=== PATIENT | female | born 1950 | race Caucasian/White ===

== ENCOUNTER 2018-11-28 17:11 | Emergency (ER) | payer MEDICARE, OTHER ==
[~2018-11-28] VITALS: Ht 167.6 cm; Wt 65.8 kg
[~2018-11-28 17:11] MED LIST: ASPI-1152; BUTA-247; DONE5TAB34; FENO145T35; MECL-102; MEMA10TA21; SERT100T12; SIMV20TA6
--- NOTE | 2018-11-28 17:20 | NUR ---
pt ambulatory to er bed 11. c/o cough, nasal congestion x 6 days now. 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
--- NOTE | 2018-11-28 17:28 | NUR ---
dr thomason at bedside for eval.
--- NOTE | 2018-11-28 18:27 | NUR ---
Patient discharged to home in stable condition. Written and verbal after care instructions given. Patient verbalizes understanding of instruction.
[2018-11-28 18:28] VITALS: BP 138/74
== END 2018-11-28 18:29 | disposition home or self-care (01) ==
LOC: ER 17:11
DX: J22 Unspecified acute lower respiratory infection (principal); Z90.89 Acquired absence of other organs; Z90.710 Acquired absence of both cervix and uterus; Z79.82 Long term (current) use of aspirin
CPT/HCPCS: 71045-TC

== ENCOUNTER 2019-02-20 22:54 | Inpatient (IN) | payer MEDICARE, OTHER ==
[~2019-02-20] VITALS: Ht 167.6 cm; Wt 68.9 kg
--- NOTE | 2019-02-20 23:48 | NUR ---
BIBF. C/O "HAVING SHARP CHEST PAIN, 6/10 RADIATING TO BACK. +DIZZY" AOX4. AMBULATORY. -SOB NOTED. -ACUTE DISTRESS
[2019-02-20 23:52] LABS: BASOPHILS # (AUTO) 0.1 /CMM (0.0-0.2); BASOPHILS % (AUTO) 1.2 % (0.0-2.0); EOSINOPHILS % (AUTO) 5.7 % (0.0-6.0); HEMATOCRIT 38 % (33-45); HEMOGLOBIN 12.9 g/dL (11.5-14.8); LYMPHOCYTES # (AUTO) 2.3 /CMM (0.8-4.8); LYMPHOCYTES % (AUTO) 34.8 % (20.0-44.0); MEAN CORPUSCULAR HGB CONC 34 g/dl (31.0-36.0); MEAN CORPUSCULAR VOLUME 83 fL (82-100); MONOCYTES # (AUTO) 0.6 /CMM (0.1-1.30); MONOCYTES % (AUTO) 9.1 % (2.0-12.0); NEUTROPHILS # (AUTO) 3.2 /CMM (1.8-8.9); NEUTROPHILS % (AUTO) 49.2 % (43.0-81.0); PLATELET COUNT (AUTO) 250 /CMM (150-450); WHITE BLOOD COUNT (AUTO) 6.6 K/uL (4.3-11.0)
[2019-02-21] VITALS (9 sets, daily range): BP systolic 134–187; BP diastolic 68–108
[2019-02-21 00:03] LABS: CALCIUM, SERUM 9.4 mg/dL (8.5-10.1); CARBON DIOXIDE 29 mmol/L (21-32); CHLORIDE 106 mmol/L (98-107); CREATININE 0.6 mg/dL (0.6-1.3); GLUCOSE 122 mg/dL (74-106); POTASSIUM 3.7 mmol/L (3.5-5.1); SODIUM SERUM 143 mmol/L (136-145); UREA NITROGEN, BLOOD 9 mg/dL (7-18)
[2019-02-21 00:23] LABS: ALANINE AMINOTRANSFERASE 21 U/L (12-78); ALBUMIN 3.7 g/dL (3.4-5.0); ALKALINE PHOSPHATASE 81 U/L (46-116); ASPARTATE AMINOTRANSFERASE 15 U/L (15-37); B-TYPE NATRIURETIC PEPTIDE 53 PG/ML (0-125); BILIRUBIN,DIRECT 0.1 mg/dL (0.0-0.2); BILIRUBIN,TOTAL 0.2 mg/dL (0.2-1.0); TOTAL PROTEIN, SERUM 8.2 g/dL (6.4-8.2)
[2019-02-21] MEDS ORDERED: ASPIRIN 81 MG TAB.CHEW PO ONE (02:00)
[2019-02-21] MEDS ORDERED: ASPIRIN 81 MG TAB.CHEW ONE (02:01)
[2019-02-21] MEDS ORDERED: CT SWABBABLE VALVE TRANS SET 1 EA INFUS.SET MC ONE (02:19)
[2019-02-21] MEDS ORDERED: IOHEXOL-350 100 ML VIAL IV ONE (02:19)
[2019-02-21] MEDS ORDERED: IV NS 0.9% 250 ML IV ONE (02:19)
--- NOTE | 2019-02-21 04:38 | NUR ---
DR CLEARY PAGED, DIRECT TO VOICEMAIL. MESSAGE LEFT
--- NOTE | 2019-02-21 04:50 | NUR ---
DR CLEARY PAGED. NO ANSWER
--- NOTE | 2019-02-21 05:17 | NUR ---
DR CLEARY PAGED, NO ANSWER
[2019-02-21] MEDS ORDERED: HYDROCODONE/APAP 5/325MG 1 EACH TABLET PO PRN (05:30)
[2019-02-21] MEDS ORDERED: ONDANSETRON HCL/PF 4 MG/2 ML VIAL IVP PRN (05:30)
[2019-02-21] MEDS ORDERED: MAG HYDROX/AL HYDROX/SIMETH 30 ML UDC PO PRN (05:30)
[2019-02-21] MEDS ORDERED: TEMAZEPAM 15 MG CAPSULE PO PRN (05:30)
[2019-02-21] MEDS ORDERED: MAGNESIUM HYDROXIDE 30 ML UDC PO PRN (05:30)
[2019-02-21] MEDS ORDERED: MORPHINE SULFATE INJ 2 MG/ML DISP.SYRIN IV PRN (05:30)
[2019-02-21] MEDS ORDERED: ACETAMINOPHEN 325 MG TABLET PO PRN (05:30)
--- NOTE | 2019-02-21 05:47 | NUR ---
REPORT GIVEN TO WILLIE PEMBERTON.
[2019-02-21] MEDS ORDERED: BIMA2.5D5 EACHEYE (06:46)
[2019-02-21] MEDS ORDERED: DORZ10DR13 EACHEYE (06:46)
--- NOTE | 2019-02-21 07:00 | NUR ---
SHAPER HAND OPENING RECEIVED REPORT FROM PM NURSE. PT. A/OX4. NO SOB OR ACUTE DISTRESS NOTED. PT. DENIES CHEST PAIN. TELE MONITOR ATTACHED, SINUS RHYTHM HR 63. ON ROOM AIR, TOLERATING WELL. IV LEFT FA 20G AND RIGHT AC 18G SALINE LOCKED, CLEAN, DRY, INTACT. BED LOCKED, LOW, SIDE RAILS UPX2, CALL LIGHT WITHIN REACH. WILL CONTINUE TO MONITOR
[2019-02-21 07:39] LABS: THYROID STIMULATING HORMONE 3.321 uIU/mL (0.358-3.74)
[2019-02-21] MEDS: ASPIRIN 81 MG TAB.CHEW PO SCH (08:07)
[2019-02-21] MEDS ORDERED: RAMI2.5C2 PO (08:54)
[2019-02-21] MEDS ORDERED: LINA145C PO (08:54)
[2019-02-21] MEDS ORDERED: OMEP40CA37 PO (08:54)
[2019-02-21] MEDS ORDERED: CLON1PAT12 (08:54)
[2019-02-21] MEDS ORDERED: ERGO500040 PO (08:54)
[2019-02-21] MEDS ORDERED: FENO160T PO (08:54)
[2019-02-21] MEDS ORDERED: ROSU10TA28 PO (08:54)
[2019-02-21] MEDS ORDERED: CAPT25TA3 PO (09:12)
[2019-02-21] MEDS ORDERED: CLON1PAT TD (09:49)
--- NOTE | 2019-02-21 11:00 | NUR ---
TRAINMASTER NOTE MADE AWARE ABOUT ELEVATED BP AND ABOUT MED RECON .LEFT MESSAGE TWO TIME.WAITING FOR NEW ORDERS.
[2019-02-21] MEDS: CARVEDILOL 3.125 MG TABLET PO SCH ×2 (12:46→20:20)
[2019-02-21] MEDS: VALSARTAN 80 MG TABLET PO SCH (12:46)
--- NOTE | 2019-02-21 13:00 | NUR ---
PERCUSSION INSTRUMENT TUNER NOTE SEEN BY ,UPDATED ABOUT PATENT CONDITION WITH ELEVATED BP.GOT NEW ORDERS.WILL CONTINUE TO MONITOR.
[2019-02-21] MEDS: FENOFIBRATE NANOCRYS (145 MG) 145 MG TABLET PO SCH (13:50)
[2019-02-21] MEDS ORDERED: CLONIDINE HCL 0.1 MG TABLET SL PRN (16:00)
--- NOTE | 2019-02-21 16:00 | NUR ---
PRODUCT SUPPORT TECHNICIAN NOTE GOT NEW ORDER FOR CLONIDINEX1 FOR ELEVATED BP,NOT GIVEN,PATIENT BP BACK TO NORMAL.FAXED RELEASE OF INFORMATION TO OFFICE PER REQUEST.LEFT MESSAGE CALLED X2,WAITING FOR PATIENT REPORT ,SPOKE TO JOYCE.
[2019-02-21] MEDS: TIMOLOL MAL/DORZOLAM HCL OPHTH 10 ML BOTTLE EACHEYE SCH (17:45)
--- NOTE | 2019-02-21 19:06 | NUR ---
MS RN NOTE REPORT GIVEN TO PM NURSE FOR SHIRLEY.PATIENT IN STABLE CONDITION.
--- NOTE | 2019-02-21 19:50 | NUR ---
LARD RENDERER NOTES RECEIVED PT ON BED. A/O X 4. ON ROOM AIR NO RESPIRATORY DISTRESS NOTED.ON TELE MONITOR SR. IV ACCESS ON LFA AND RAC G20 PATENT AND INTACT. HEAD OF BED ELEVATED. SIDE RAILS UP. CALL LIGHT WITHIN REACH. BED ALARM ON. WILL CONTINUE TO MONITOR PT CLOSELY.
[2019-02-22 04:00] VITALS: BP 114/75
--- NOTE | 2019-02-22 06:40 | NUR ---
GUN STRIPER NOTES NO ACUTE CHANGES NOTED DURING THE SHIFT. PROVIDED COMFORT AND SAFETY. WILL ENDORSE TO THE AM NURSE FOR CONTINUITY OF CARE.
[2019-02-22 06:48] LABS: BASOPHILS # (AUTO) 0.1 /CMM (0.0-0.2); BASOPHILS % (AUTO) 0.9 % (0.0-2.0); EOSINOPHILS % (AUTO) 6.1 % (0.0-6.0); HEMATOCRIT 39 % (33-45); LYMPHOCYTES % (AUTO) 30.7 % (20.0-44.0); MEAN CORPUSCULAR HGB CONC 34 g/dl (31.0-36.0); MEAN CORPUSCULAR VOLUME 83 fL (82-100); MONOCYTES # (AUTO) 0.5 /CMM (0.1-1.30); MONOCYTES % (AUTO) 8.4 % (2.0-12.0); NEUTROPHILS # (AUTO) 3.5 /CMM (1.8-8.9); NEUTROPHILS % (AUTO) 53.9 % (43.0-81.0); PLATELET COUNT (AUTO) 208 /CMM (150-450); RED BLOOD CELL COUNT(AUTO) 4.65 MIL/uL (4.0-5.2); WHITE BLOOD COUNT (AUTO) 6.5 K/uL (4.3-11.0)
[2019-02-22 07:13] LABS: CALCIUM, SERUM 9.4 mg/dL (8.5-10.1); CREATININE 0.7 mg/dL (0.6-1.3); POTASSIUM 3.8 mmol/L (3.5-5.1)
[2019-02-22 07:14] LABS: MAGNESIUM 2.2 mg/dL (1.8-2.4)
[2019-02-22] MEDS ORDERED: PANTOPRAZOLE 40 MG TABLET.DR PO SCH (07:30)
--- NOTE | 2019-02-22 07:39 | NUR ---
MS RN NOTES RECEIVED PT ON BED. A/O X 4. ON ROOM AIR NO SOB AT THIS TIME . IV ACCESS ON LFA PATENT AND INTACT. HEAD OF BED ELEVATED. SIDE RAILS UP. CALL LIGHT WITHIN REACH. BED ALARM ON. WILL CONTINUE TO MONITOR PT CLOSELY, BED IN LOWEST AND LOCKED POSITION , PLAN OF CARE DISCUSSED WITH PATIENT .NO C\O DISCOMFORT AT THIS TIME .
[2019-02-22 08:00] VITALS: BP 152/92
[2019-02-22] MEDS: ASPIRIN 81 MG TAB.CHEW PO SCH (08:47)
[2019-02-22] MEDS: VALSARTAN 80 MG TABLET PO SCH (08:49)
[2019-02-22] MEDS: FENOFIBRATE NANOCRYS (145 MG) 145 MG TABLET PO SCH (08:50)
[2019-02-22] MEDS: CARVEDILOL 3.125 MG TABLET PO SCH (08:51)
[2019-02-22] MEDS: RAMIPRIL 1.25 MG CAPSULE PO SCH ×2 (08:52→09:36)
[2019-02-22] MEDS: TIMOLOL MAL/DORZOLAM HCL OPHTH 10 ML BOTTLE EACHEYE SCH (08:53)
[2019-02-22] MEDS ORDERED: Linaclotide (Linzess) 145 MCG PO SCH (09:00)
[2019-02-22] MEDS ORDERED: ATORVASTATIN 10 MG TABLET PO SCH (09:00)
[2019-02-22 12:00] VITALS: BP 120/88
--- NOTE | 2019-02-22 12:00 | NUR ---
MS RN NOTE SEEN BY DR LANE , NOTIFIED THAT PATIENT STILL C\O CHEST DISCOMFORT , STATED OK TO AMBULATE K WITH
--- NOTE | 2019-02-22 13:44 | NUR ---
MS RN NOTE PATIENT AMBULATED IN ROOM , ALL NEEDS ATTENDED ,NO DIZZINESS NOTED, WILL F\U
--- NOTE | 2019-02-22 14:49 | NUR ---
farmworker fruit received fax from undisclosed location without facesheet attainting pts Authorization for Use or Disclosure of Health Information (42 pages). Social reached out to pts RN, pts RN not aware of paperwork, geriatric social worker filed patients medical records in pts chart.
[2019-02-22] MEDS ORDERED: VALS80TA2 PO (15:27)
[2019-02-22] MEDS ORDERED: CARV3.122 PO (15:27)
--- NOTE | 2019-02-22 17:01 | NUR ---
ms rn ote discharge instruction given, understood , hl on lt fa removed ,no s\s infection noted ,no bleeding noted px given understood , instructed to f\u with primary care doctor and technologist development and take px as ordered, belongings signed , instructed how to take home Meds and new one and possible side effects , ,taken home by walking with daughter and staff with stable condition
== END 2019-02-22 16:55 | disposition home or self-care (01) | DRG 199 ==
LOC: ER 22:56 → TELE1 02-21 05:26 → MEDSG1 02-21 20:09
PROVIDERS: ATTEND Registered Nurse
DX: I16.0 Hypertensive urgency (principal); E78.5 Hyperlipidemia, unspecified; H40.9 Unspecified glaucoma; I10 Essential (primary) hypertension
CPT/HCPCS: 36415; 70450-TC; 71045-TC; 80048-TC; 80061-TC; 80076-TC; 83735-TC; 83880; 84100-TC; 84443-TC; 84484-TC; 85025-TC; 85378-TC; 85730-TC; 87081-TC; 93307-TC; G0378; J7050; Q9967